=== PATIENT | male | born 1980 | race African-American/Black ===

== ENCOUNTER 2022-10-09 20:26 | Emergency (ER) | payer SELFPAY ==
[2022-10-09] MEDS ORDERED: Ibuprofen 800 MG TAB ONE (21:55)
[2022-10-09] MEDS ORDERED: Bicillin LA 2.4 MILL.UNITS/4 ML SYRINGE ONE (22:36)
[2022-10-09] MEDS ORDERED: Dexamethasone 10 MG/ML VIAL ONE (22:36)
== END 2022-10-09 22:57 | disposition home or self-care (01) ==
LOC: ERS 20:26
DX: J02.9 Acute pharyngitis, unspecified (principal); F17.210 Nicotine dependence, cigarettes, uncomplicated
CPT/HCPCS: 87081; 87430; 96372; 99283; J0561; J1100

== ENCOUNTER 2024-01-03 12:28 | Emergency (ER) | payer SELFPAY | END 2024-01-03 13:40 | disposition home or self-care (01) | LOC: ERS 12:28 | DX: K14.8 Other diseases of tongue (principal); I10 Essential (primary) hypertension; F17.210 Nicotine dependence, cigarettes, uncomplicated | CPT/HCPCS: 99282 ==